=== PATIENT | male | born 1950 | race Caucasian/White ===

== ENCOUNTER 2020-08-22 06:31 | Day surgery (SDC) | payer OTHER ==
[~2020-08-22 06:31] MED LIST: KETO10TA2 PO
== END 2020-08-22 10:50 | disposition home or self-care (01) ==
LOC: AMB-ENDOS 06:31
PROVIDERS: ATTEND Colon & Rectal Surgery
DX: K62.89 Other specified diseases of anus and rectum (principal); K64.1 Second degree hemorrhoids; Z20.822 Contact with and (suspected) exposure to COVID-19

== ENCOUNTER 2024-04-06 07:19 | Outpatient (CLI) | payer OTHER | END 2024-04-06 07:20 | disposition home or self-care (01) | LOC: NUCLEAR 07:19 | PROVIDERS: ATTEND Internal Medicine | DX: I20.9 Angina pectoris, unspecified (principal) | CPT/HCPCS: 78452; 93017; A9500 ==